=== PATIENT | female | born 1970 | race Caucasian/White ===

== ENCOUNTER → 2019-12-26 13:19 | Outpatient (CLI) | payer OTHER, SELFPAY ==
--- NOTE | 2019-12-26 13:23 | DI.RAD.S_ITS ---
PROCEDURE: XR FOOT LT MIN 3V INDICATIONS: LT foot pain TECHNIQUE: 3 views of the foot were acquired. COMPARISON: None. FINDINGS: Bones: No fractures or dislocations. No suspicious bony lesions. Soft tissues: No tibiotalar joint effusion. Achilles tendon appears normal. IMPRESSION: No acute osseous abnormality of the left foot. Dictated by: Meet Coreas M.D. on 12/26/2019 at 12:36 Approved by: Meet Coreas M.D. on 12/26/2019 at 12:37
== END ==
PROVIDERS: PCP Family Medicine; Referring Provider Physician Assistant; Visit Provider Physician Assistant
DX: M79.672 Pain in left foot (principal)
CPT/HCPCS: 73630

== ENCOUNTER → 2022-04-12 15:06 | Outpatient (CLI) | payer OTHER, SELFPAY ==
[2022-04-12 16:06] LABS: COVID19 -Nasal RAPID Negative (Negative)
== END ==
PROVIDERS: PCP Family Medicine; Visit Provider Surgery
DX: Z20.822 Contact with and (suspected) exposure to COVID-19 (principal); Z01.812 Encounter for preprocedural laboratory examination
CPT/HCPCS: 87635; C9803

== ENCOUNTER 2022-04-15 12:13 | Day surgery (SDC) | payer OTHER, SELFPAY ==
--- NOTE | 2022-04-15 | PATH_ITS ---
[facility] Accession Number: [id number] . 01 Material submitted: . PART A: gastrointestinal site - ANTRUM PART B: esophagus - MID ESOPHAGUS . 01 Diagnosis: A. Antrum, Biopsy: Gastric mucosa with minimal chronic inflammation and increased eosinophils within the lamina propria. No Helicobacter pylori organisms on immunohistochemical evaluation. No intestinal metaplasia, dysplasia, or malignancy. See comment. . B. Mid Esophagus, Biopsy: Esophageal squamous mucosa with mildly increased intraepithelial eosinophils (up to 20 per high-power field). No fungal organims on AB/PAS stain. No glandular mucosa present. No dysplasia or malignancy. See comment. MRV 04/19/2022 1631 Local . 01 Comment: Parts A and B: The features suggest the possibility of eosinophilic esophagitis in the right clinical setting. Reflux remains on the histologic differential diagnosis and clinical correlation is recommended. The presence of increased eosinophils in the gastric mucosa is non-specific and may be seen in conjunction to the findings in part B or maybe related to allergy, drug/toxins, infection, peptic related disease or maybe secondary to peripheral eosinophilia. Clinical correlation is recommended. . As part of routine air quality chemist, Dr. Aashish Andres also reviewed this case and agrees with the diagnosis. . 01 Electronically signed: . Suyapa Todd MD, Pathologist NPI- [id number] . 01 Gross description: . A. Received in formalin, labeled with the patient's name and antrum, and consists of two irregular silva soft tissue fragments ranging from 0.2 cm to 0.3 cm in greatest dimension. Submitted entirely in cassette A1. B. Received in formalin, labeled with the patient's name and mid esophageal, and consists of five irregular pale silva soft tissue fragments ranging from 0.2 cm to 0.3 cm in greatest dimension. Submitted entirely in cassette B1. ([id number]) /FRR 04/18/2022 0327 Local . 01 Microscopic: . A. An immunohistochemical stain was performed to evaluate for Helicobacter organisms and is negative. The control stain showed appropriate reactivity. . * This test was developed and its performance characteristics determined by [facility]. It has not been cleared or approved by the U.S. Food and Drug Administration. The FDA has determined that such clearance or approval is not necessary. This test is used for clinical purposes. It should not be regarded as investigational or for research. . 01 Pathologist provided ICD-10: K29.70, K20.0, K21.00 . 01 CPT . 888195, 625274, I10529, 899473 Specimen Comment: A courtesy copy of this report has been sent to [phone] Performed at: [facility] [address] [place] [address], [place], [place] [id number] MD Timur Kelley MD Phone: [phone]
[2022-04-15] MEDS: SODIUM CHLORIDE 0.9% 1,000 ML 84 ML IV ×2 (12:45→15:41)
[2022-04-15 12:57] VITALS: BP 121/78; PULSE 81; RESP 16; TEMP 37.3; O2SAT 100; BMI 19.3
--- NOTE | 2022-04-15 13:20 | PM.HP.1 ---
History of Present Illness History of Present Illness Date Patient Seen: 04/15/22 Time Patient Seen: 13:20 Chief complaint: EGD Narrative: I reviewed the recent note by Dr. Recinos. No significant changes. Repeat HIDA scan is still pending. Patient History Family & Social History Social History: household members spouse Tobacco & Substance use: Smoking Status Former smoker alcohol intake frequency a few times a month Substance Use Type marijuana Meds Home Medications and Allergies Home Medications Medication Instructions Recorded Confirmed Type cetirizine 10 mg tablet (Zyrtec) 10 mg PO DAILY PRN Allergy Symptoms 04/15/22 04/15/22 History rizatriptan 10 mg tablet 10 mg PO DAILY PRN Migraine 04/15/22 04/15/22 History Headache venlafaxine 37.5 mg 37.5 mg PO DAILY 04/15/22 04/15/22 History capsule,extended release 24 hr Allergies Allergy/AdvReac Type Severity Reaction Status Date / Time banana Allergy Severe Anaphylaxis Verified 04/15/22 12:48 Review of Systems Review of Systems ROS: Yes All systems reviewed with the patient and are negative except as otherwise documented Exam Vital Signs (past 8 hours): - 04/15/22 12:57 Temperature 99.1 F Pulse Rate 81 Respiratory Rate 16 Blood Pressure 121/78 Pulse Oximetry 100 Oxygen Delivery Method Room Air Oxygen Delivery Method Room Air Const General: cooperative HENMT Head: normal to inspection Eyes General: appearance normal, both eyes and all related structures Neck Neck: normal visual inspection Chest Chest: normal inspection of the chest Resp Effort & Inspection: normal respiratory effort Cardio Rate: regular rate GI Inspection: normal to inspection Skin General: no rashes or lesions noted Neuro General: patient alert and patient awake Extrem General: normal to inspection and no pedal edema Psych Appearance: grossly normal Assessment & Plan Assessment & Plan narrative: 51-year-old female with right upper quadrant pain. She is a history of gastritis. EGD is planned for today. Time Spent With Patient Critical Care time: I spent a total of [] minutes of critical care time on this patient's care today; this time is exclusive of procedural time.
--- NOTE | 2022-04-15 13:22 | PM.PREOP ---
Pre-operative Note COVID-19 COVID-19 status: Negative Result date/Date tested (Pos, Neg/Pending): 04/12/22 Criteria for continued procedure: Possibility delay results in more complex future surgery or treatment Interval Note History & Physical reviewed/Exam performed by Physician: Yes Changes to H&P: No ASA Class (for procedural sedation): II
--- NOTE | 2022-04-15 15:44 | PM.OP.EGD ---
Operative Date/Time/Diagnoses Date of procedure: 04/15/22 Time of procedure: 15:44 Pre-op diagnosis: Right upper quadrant pain Post-op diagnosis: other (Multifocal esophageal stricturing) Procedure & Clinicians Study performed: EGD with biopsy and balloon dilatation Same procedure as scheduled: No Indications: Right upper quadrant pain Surgeon: Yovani Akbar Procedure Notes SCOAP/Timeout: Done Procedure in detail: After the risks and benefits were explained, written and verbal informed consent was obtained. The patient was brought into the procedure room and placed into the left lateral decubitus position. Please see nurse otr truck driver notes for sedation details. The scope was introduced into the mouth through the bite block and advanced under direct visualization to the 2nd portion of the duodenum. The scope was slowly withdrawn carefully examining the mucosa for any defects or lesions. Retroflexed views were accomplished in the stomach. The stomach was decompressed, the scope was then removed from the patient who tolerated the procedure well. Sedation minutes: 28 Complications: none Impression: 1. Esophagus: Upon entry into the esophagus it was apparent that there was a ring roughly 9 mm in greatest dimension that would not allow passage of the tip of the endoscope through. I withdrew the scope and passed a 10-12 mm dilating balloon. We then repositioned the scope in proximal esophagus and advanced the wire into stomach with ease. I then positioned the balloon across the ring and sequentially dilated at 10, 11, and then 12 mm. 10 mm was held for approximately 30-40 seconds. Eleven and 12 mm were held for approximately 1 minute. After the dilatation was accomplished there was an appropriate rent in the mucosa. I was then able to advance down to the GE junction were a 2nd ring was identified right at the interface between stomach and esophagus. Lumen size was perhaps 8-9mm there as well. We once again advance the wire from the balloon into stomach and then sequentially dilated starting at 10 mm up to 12 mm. Ten was held for about 30-40 seconds 11 and 12 mm were held for about a minute each. After the dilatation was accomplished there was another appropriate rent in the mucosa consistent with dilatation. We then easily passed into the stomach for completion of the procedure. I noticed that there were some subtle circumferential rings in the midesophagus and at the completion of the procedure we took midesophageal biopsies for evaluation for eosinophilic esophagitis. 2. Stomach: The patient had superficial and crater ring peptic ulcer disease in the antrum. These ulcers were bland based. Two or 3 were seen the largest was perhaps 7 mm in greatest dimension. Biopsies were acquired from this location for exclusion of Helicobacter or any other underlying pathology. Otherwise retroflexed views of the LES were unremarkable apart from some blood from the prior dilatation. 3. Duodenum: This was visually unremarkable from the bulb through to the 2nd portion. Endoscopic diagnosis 1. Multifocal esophageal rings status post dilatation to 12 mm x 2. (1 at the GE junction and 1 just below the upper esophageal sphincter mechanism) 2. Tightly grouped circumferential esophageal folds concerning for eosinophilic esophagitis-biopsied 3. Multifocal antral peptic ulcer disease. Post-procedure Plan for aftercare: 1. Await histopathology. 2. Omeprazole twice daily is recommended starting today for the next 2 weeks and then once per day thereafter. 3. Avoid NSAIDs 4. If Helicobacter is found it will need to be eradicated with standard triple therapy. 5. If eosinophilic esophagitis is confirmed then referral to an software licensing specialist will be pursued. 6. Liquid diet only this evening advancing to soft diet tomorrow as tolerated advancing to well chewed food beyond that as tolerated. Disposition: PACU
[2022-04-15 15:48] VITALS: BP 87/57; PULSE 62; RESP 20; TEMP 36.2; O2SAT 100
[2022-04-15 15:53] VITALS: BP 87/56; PULSE 60; RESP 20; O2SAT 100
[2022-04-15 15:58] VITALS: BP 91/62; PULSE 59; RESP 19; O2SAT 100
[2022-04-15 16:06] VITALS: BP 97/61; PULSE 79; RESP 14; TEMP 36.2; O2SAT 100
[2022-04-15 16:35] VITALS: BP 111/65; PULSE 56; RESP 16; O2SAT 100
== END 2022-04-15 16:05 | disposition home or self-care (01) ==
PROVIDERS: PCP Physician Assistant; Referring Provider Internal Medicine Gastroenterology; Visit Provider Internal Medicine Gastroenterology
PROC: 0DJ08ZZ Inspection of Upper Intestinal Tract, Via Natural or Artificial Opening Endoscopic (ICD-10-PCS; CPT 43235; principal; 2022-04-15 13:30)
DX: K25.9 Gastric ulcer, unspecified as acute or chronic, without hemorrhage or perforation (principal); K22.2 Esophageal obstruction; J45.909 Unspecified asthma, uncomplicated; K29.50 Unspecified chronic gastritis without bleeding
CPT/HCPCS: 43249; 43239; J2704

== ENCOUNTER → 2022-04-17 09:01 | Outpatient (CLI) | payer OTHER, SELFPAY | PROVIDERS: PCP Physician Assistant; Referring Provider Student in an Organized Health Care Education/Training Program; Visit Provider Student in an Organized Health Care Education/Training Program | DX: R93.5 Abnormal findings on diagnostic imaging of other abdominal regions, including retroperitoneum (principal); R11.2 Nausea with vomiting, unspecified ==

== ENCOUNTER → 2022-04-29 09:12 | Outpatient (CLI) | payer OTHER, SELFPAY ==
--- NOTE | 2022-04-29 09:15 | DI.NM.S_ITS ---
PROCEDURE: NM HIDA WITH CCK PHARMACEUTICAL: 5.3 mCi Tc-99m mebrofenin IV; 1.0 mcg CCK IV. INDICATIONS: ABNORMAL ABD IMAGING/ABNORMAL HIDA/NAUSEA/VOMITING TECHNIQUE: Following intravenous administration of Tc-99m mebrofenin, sequential anterior abdominal images were obtained. To evaluate the contractile response of the gallbladder in response to Cholecystokinin (CCK), sincalide (0.02 ?g/kg) was administered by slow intravenous infusion approximately 60 minutes after the administration of the radiopharmaceutical. Sequential imaging was continued for 30 minutes after the start of CCK infusion. Gallbladder ejection fraction was calculated. COMPARISON: [facility], , ABDOMEN COMPLETE, 12/27/2014, 8:42. FINDINGS: Biliary scan: There is normal tracer uptake and excretion by the liver. There is normal visualization of the intrahepatic ducts, common bile duct, and gallbladder. There is normal tracer transit into the duodenum. Note is made of bile reflux into the stomach. CCK stimulation: There is poor contractile response of the gallbladder to CCK infusion. The calculated gallbladder ejection fraction is 10%; normal values are above 35%. IMPRESSION: 1. Normal filling of gallbladder. No evidence for acute cholecystitis. 2. Poor contractile response of gallbladder to CCK stimulation consistent with gallbladder dyskinesia. 3. Bile reflux into the stomach. Dictated by: Moy Bermudez M.D. on 04/29/2022 at 11:31 Approved by: Moy Bermudez M.D. on 04/29/2022 at 11:34
== END ==
PROVIDERS: PCP Physician Assistant; Referring Provider Student in an Organized Health Care Education/Training Program; Visit Provider Student in an Organized Health Care Education/Training Program
DX: R93.5 Abnormal findings on diagnostic imaging of other abdominal regions, including retroperitoneum (principal); R11.2 Nausea with vomiting, unspecified
CPT/HCPCS: 78227; A9537; J2805

== ENCOUNTER 2022-06-11 08:58 | Day surgery (SDC) | payer OTHER, SELFPAY ==
[2022-06-06 12:20] VITALS: BMI 19.2
[2022-06-11] VITALS (10 sets, daily range): BP systolic 90–110; BP diastolic 58–73; PULSE 76–89; RESP 12–20; TEMP 36.5–37.3; O2SAT 94–100; BMI 19.2
--- NOTE | 2022-06-11 | PATH_ITS ---
[facility] Accession Number: [id number] . 01 Material submitted: . gallbladder - GALLBLADDER . 01 Diagnosis: Gallbladder, Cholecystectomy: Mild chronic cholecystitis. MRV 06/14/2022 1125 Local . 01 Electronically signed: . Suyapa Todd MD, Pathologist NPI- [id number] . 01 Gross description: . The specimen is received in formalin labeled with the patient's name, , and gallbladder, and consists of an intact gallbladder measuring 6.4 x 3.3 x 2.7 cm. The serosa is green and smooth while the hepatic surface is rough and unremarkable. The cystic duct is received closed with a clamp, is inked blue, and no pericystic lymph node is identified. The lumen is filled with dark green viscous bile with no calculi identified in the lumen or the container. The mucosa is dark green and velvety with no pinpoint yellow areas of discoloration, polyps, or lesions identified. The cortez average 0.1 cm thick. Ancillary Services Manager sections to include the cystic duct margin and full-thickness sections are submitted in cassette A1. ([id number]) /MRV 06/13/2022 1305 Local . 01 Pathologist provided ICD-10: K82.9 . 01 CPT . 433524 Specimen Comment: A courtesy copy of this report has been sent to [phone] Performed at: 01 [facility] [address] [place] [address], [place], [place] [id number] MD Timur Kelley MD Phone: [phone]
[2022-06-11] MEDS: ONDANSETRON 4 MG/2 ML INJ IV (09:23)
[2022-06-11] MEDS: ACETAMINOPHEN 325 MG TABLET 975 MG PO (09:32)
[2022-06-11] MEDS: LACTATED RINGERS 1,000 ML 84 ML IV (09:35)
--- NOTE | 2022-06-11 09:44 | PM.PREOP ---
Pre-operative Note COVID-19 COVID-19 status: Negative Result date/Date tested (Pos, Neg/Pending): 06/11/22 Interval Note History & Physical reviewed/Exam performed by Physician: Yes Changes to H&P: No ASA Class (for procedural sedation): II
[2022-06-11] MEDS: SCOPOLAMINE 1 PATCH TOP (09:59)
--- NOTE | 2022-06-11 10:00 | SUR.PREOP ---
[address] Phillip in OR #2. Informed of patient migraine and mild nausea. See new orders for Tylenol and zofran.
[2022-06-11] MEDS: CEFAZOLIN 2 GM/100 ML PREMIX 100 ML IV (10:10)
--- NOTE | 2022-06-11 10:26 | SUR.OPER ---
Supine on padded OR bed, head on pillow, safety belt at thigh, Bilateral arms secured on padded arm boards <90 degrees abduction. Legs uncrossed. Padded footboard in place. Tape over blanket to secure lower legs.Gel pad under bilateral heels.
[2022-06-11] MEDS: BUPIVACAINE 0.5% W/ EPI (PF) 30 ML VIAL INJ (10:37)
--- NOTE | 2022-06-11 11:33 | PM.OP.1 ---
Operative Date/Time/Diagnoses Date of procedure: 06/11/22 Time of procedure: 11:33 Pre-op diagnosis: Biliary dyskinesia Post-op diagnosis: same Procedure & Clinicians Procedure: Laparoscopic cholecystectomy Same procedure as scheduled: Yes Surgeon: Tres Juárez Operative Notes Procedure in detail: The patient was given preoperative antibiotic. The patient was brought to the operating room, placed on the table in the supine position. General endotracheal anesthesia was induced. The abdomen was prepped and draped. A time-out was performed. We made a 1 cm infraumbilical incision. We dissected down to the base of the umbilical stalk using cautery. We grasped the umbilical stalk with a Greg clamp to elevate the abdominal wall. We scored the fascia in the midline with cautery 1 cm. We pierced the peritoneum with a Peon clamp. The Orlando port was placed and the abdomen was insufflated to 15 mmHg. A 5 mm 30 degree laparoscopic was inserted. There was no evidence of any injury from the entry. Next, we placed 5 mm ports in the subxiphoid position and right upper quadrant at the midclavicular line and anterior axillary line. The patient was then positioned in reverse Trendelenburg and the table was tilted to the left. The gallbladder was grasped at the dome and retracted cephalad. There were no adhesions noted in the gallbladder did not appear to be particularly inflamed. We then dissected the cystic structures with a combination of hook cautery and blunt dissection. We obtained a critical view. We placed clips on the cystic duct and artery and divided the cystic duct and artery sharply between the clips. The gallbladder was then dissected off the liver and placed in a specimen retrieval bag. We irrigated the right upper quadrant and all the aspirate returned clear. We then removed the 5 mm ports under direct vision we removed the [place] port. We then injected some local into the fascia and closed the fascia with 2 interrupted 0 Vicryl sutures. The skin incisions were closed with 4-0 Monocryl and Steri-Strips were applied. Band-Aids were applied over the Steri-Strips. EBL: 5 mL Specimen: Gallbladder Post-operative Disposition: PACU
[2022-06-11] MEDS: OXYCODONE/ACETAMINOPHEN 5/325 TABLET 1 TAB PO (12:19)
== END 2022-06-11 12:25 | disposition home or self-care (01) ==
PROVIDERS: PCP Physician Assistant; Referring Provider Surgery; Visit Provider Surgery
PROC: 0FT44ZZ Resection of Gallbladder, Percutaneous Endoscopic Approach (ICD-10-PCS; CPT 47562; principal; 2022-06-11 10:15)
DX: K82.8 Other specified diseases of gallbladder (principal); J45.909 Unspecified asthma, uncomplicated; Z20.822 Contact with and (suspected) exposure to COVID-19
CPT/HCPCS: 47562; 87635; C9803; J0690; J1100; J1885; J2250; J2405; J2704; J3010

== ENCOUNTER → 2022-06-11 08:58 | Outpatient (CLI) | payer OTHER, SELFPAY ==
[2022-06-11 09:38] LABS: COVID19 -Nasal RAPID Negative (Negative)
== END ==
PROVIDERS: PCP Physician Assistant; Visit Provider Surgery
DX: Z01.812 Encounter for preprocedural laboratory examination (principal); Z20.822 Contact with and (suspected) exposure to COVID-19
CPT/HCPCS: 87635

== ENCOUNTER 2023-08-03 10:16 | Emergency (ER) | payer OTHER, SELFPAY ==
[2023-08-03 10:34] VITALS: BP 141/79; PULSE 75; RESP 18; TEMP 36.4; O2SAT 100; BMI 19.3
--- NOTE | 2023-08-03 10:39 | DI.RAD.S_ITS ---
PROCEDURE: XR CHEST 1V INDICATIONS: chest pain TECHNIQUE: One view of the chest was acquired. COMPARISON: None. FINDINGS: Surgical changes and devices: None. Lungs and pleura: Lungs are clear. No pleural effusions or pneumothorax. Mediastinum: Mediastinal contours appear normal. Heart size is normal. Bones and chest wall: No suspicious bony lesions. Overlying soft tissues appear unremarkable. IMPRESSION: No acute cardiopulmonary abnormality is seen. Dictated by: Renee Beltran M.D. on 08/03/2023 at 11:48 Approved by: Renee Beltran M.D. on 08/03/2023 at 11:48
[2023-08-03 11:05] LABS: Add Manual Diff / Slide Review NO; Basophils Absolute Auto 100 /uL (0-100); Basophils Percent Auto 1.8 % (0-2); Eosinophils Absolute Auto 300 /uL (0-450); Eosinophils Percent Auto 5.6 % (2-4); Hematocrit 36.8 % (36-46); Hemoglobin 12.4 g/dL (12.0-16.0); Lymphocytes Absolute Auto 1700 /uL (1100-4500); Lymphocytes Percent Auto 33.7 % (25-40); Mean Corpuscular HGB Conc 33.6 % (30-36); Mean Corpuscular Hemoglobin 28.5 PG (26-34); Mean Corpuscular Volume 84.9 fL (80-100); Monocytes Absolute Auto 400 /uL (0-900); Monocytes Percent Auto 7.7 % (3-14); Neutrophils Absolute Auto 2600 /uL (1500-7000); Neutrophils Percent Auto 51.2 % (50-75); Platelet Count 329 X10^3/uL (150-400); Red Blood Cell Count 4.34 X10^6/uL (4.0-5.2); Red Cell Distribution Width 14.1 % (11.6-14.8)
[2023-08-03 11:12] LABS: Prothrombin Time 10.9 SECONDS (9.4-12.5)
[2023-08-03 11:15] LABS: PTT Partial Thromboplastin Tim 35 SECONDS (25.1-36.5)
[2023-08-03 11:16] LABS: Alanine Aminotransferase 15 IU/L (<35); Albumin 4.3 g/dL (3.5-5.0); Albumin Globulin Ratio 1.3 (1.0-2.8); Alkaline Phosphatase 62 U/L (38-126); Aspartate Aminotransferase 23 IU/L (14-36); BUN Creatinine Ratio 14.7 (6-22); Bilirubin Total 0.5 mg/dL (0.2-1.3); Blood Urea Nitrogen 11 mg/dL (7-17); Calcium 8.7 mg/dL (8.4-10.2); Carbon Dioxide 24 mmol/L (22-32); Chloride 106 mmol/L (98-107); Creatine Kinase 65 U/L (30-135); Estimated Glomerular Filt Rate > 60 mL/min (>60); Globulin 3.2 g/dL (1.7-4.1); Glucose 97 mg/dL (70-100); HEMOLYSIS < 15 (0-50); Lipase 150 U/L (23-300); Magnesium 2.1 mg/dL (1.6-2.3); Potassium 3.9 mmol/L (3.4-5.1); Sodium 138 mmol/L (137-145); Total Protein 7.5 g/dL (6.3-8.2)
[2023-08-03 11:27] LABS: Troponin I < 0.012 ng/mL (0.01-0.034)
[2023-08-03 12:00] VITALS: BP 111/58; PULSE 75; RESP 16; O2SAT 100
--- NOTE | 2023-08-03 15:52 | ED_ITS ---
HPI - Chest Pain <Dorys Damon PA-C - Last Filed: 08/03/23 16:01> General Chief Complaint: Chest Pain Stated Complaint: CHEST PAIN/ COUGH Time Seen by Provider: 08/03/23 11:12 History of Present Illness HPI narrative: Patient is a 53-year-old female with a history of asthma and possible eosinophilic esophagitis who presents with 48 hours of chest pain. She reports the pain started on Friday which was the same day that she had a special needs student at work who was escalating and she had to physically restrain him. She does not remember any specific injury at the time but wonders if this could have caused an injury. She also has recently had a respiratory illness. She went sledding yesterday and was very uncomfortable. She has been taking ibuprofen for the pain. It is worse with a sharp breath or activity or left arm movement. Sometimes it radiates over her left shoulder. It is better with rest, ibuprofen. She takes an albuterol inhaler PRN, especially before exercising. She feels somewhat short of breath but thinks this is secondary to her recent viral illness not due to this pain. She has a history of a workup for chest pain through [facility] and they didn't find anything. She denies any history of blood clots, swelling in her legs or recent immobilization. Related Data Home Medications Medication Instructions Recorded Confirmed cetirizine 10 mg tablet (Zyrtec) 10 mg PO DAILY PRN Allergy Symptoms 04/15/22 06/24/22 rizatriptan 10 mg tablet 10 mg PO DAILY PRN Migraine 04/15/22 06/24/22 Headache venlafaxine 37.5 mg 37.5 mg PO DAILY 04/15/22 06/24/22 capsule,extended release 24 hr eletriptan 40 mg tablet 40 mg PO ONCE 05/27/22 06/24/22 albuterol 90 mcg/actuation aerosol 90 mcg inhalation Q4H PRN 06/11/22 06/24/22 inhaler Shortness Of Breath Or Wheezing Previous Rx's Medication Instructions Recorded omeprazole 20 mg capsule,delayed 20 mg PO BID #60 caps 04/15/22 release hydrocodone 10 mg-acetaminophen 15 ml PO Q8H PRN pain #120 mL 06/11/22 325 mg/15 mL (15 mL) oral solution hydrocodone 5 mg-acetaminophen 325 1 tab PO Q8H PRN pain #14 tabs 06/11/22 mg tablet ondansetron 4 mg disintegrating 4 mg PO Q8H PRN nausea and 06/11/22 tablet vomiting #20 tabs Allergies Allergy/AdvReac Type Severity Reaction Status Date / Time banana Allergy Severe Anaphylaxis Verified 06/24/22 13:10 Review of Systems <Dorys Damon PA-C - Last Filed: 08/03/23 16:01> Review of Systems ROS Unobtainable: All systems reviewed & are unremarkable except as noted in HPI and below Patient History <Dorys Damon PA-C - Last Filed: 08/03/23 16:01> Medical History Asthma Surgical History Hx of esophagogastroduodenoscopy (04/15/22) H/O tubal ligation History of endometrial ablation Family History Mother Hypertension Gallstones Father Heart disease Social History household members: spouse Smoking Status: Former smoker alcohol intake: current Smoking Status: Former smoker alcohol intake frequency: a few times a month Substance Use Type: marijuana Exam <Dorys Damon PA-C - Last Filed: 08/03/23 16:01> Narrative Exam Narrative: GENERAL: 53 year old patient appears stated age. Well-developed patient, in no acute distress. NEURO: AOx3. HEAD: Atraumatic. Normocephalic. EYES: Pupils equal round and reactive. Extraocular motions intact. No scleral icterus. No injection or drainage. ENT: Nose without bleeding or purulent drainage. Airway patent. CARDIOVASCULAR: Regular rate and rhythm without murmurs, gallops, or rubs. RESPIRATORY: Clear to auscultation. Breath sounds equal bilaterally. No wheezes, rales, or rhonchi. EXTREMITIES: No edema or joint tenderness. SKIN: No rash or erythema of visible areas Initial Vital Signs Initial Vital Signs: Vital Signs Temperature 97.6 F 08/03/23 10:34 Pulse Rate 75 08/03/23 10:34 Respiratory Rate 18 08/03/23 10:34 Blood Pressure 141/79 H 08/03/23 10:34 Pulse Oximetry 100 08/03/23 10:34 Oxygen Delivery Method Room Air 08/03/23 10:34 <Jyoti Christine DO - Last Filed: 08/06/23 08:53> Initial Vital Signs Initial Vital Signs: Vital Signs Temperature 97.6 F 08/03/23 10:34 Pulse Rate 75 08/03/23 10:34 Respiratory Rate 18 08/03/23 10:34 Blood Pressure 141/79 H 08/03/23 10:34 Pulse Oximetry 100 08/03/23 10:34 Oxygen Delivery Method Room Air 08/03/23 10:34 Scores <Dorys Damon PA-C - Last Filed: 08/03/23 16:01> Vasiliy Criteria for PE Clinical signs and symptoms of DVT: No PE is #1 Dx or equally likely: No Heart rate > 100: No Immobilization at least 3 days or surg in previous 4 weeks: No History of PE or DVT: No Hemoptysis: No Malignancy w/Treatment within 6 months or palliative: No Wells' PE Score total: 0 <DO Tien Trejo Last Filed: 08/06/23 08:53> WellsNaina Criteria for PE Wells' PE Score total: 0 Course <Dorys Damon PA-C - Last Filed: 08/03/23 16:01> Orders Ordered: Discontinued Medications Aspirin (Aspirin 81 Mg Chew Tab) 324 mg PO NOW ONE Stop: 08/03/23 10:40 Last Admin: 08/03/23 11:28 Dose: Not Given Documented By: RL Vital Signs Vital signs: Vital Signs - 8 hr 08/03/23 10:34 08/03/23 12:00 Temperature 97.6 F Pulse Rate 75 75 Respiratory Rate 18 16 Blood Pressure 141/79 H 111/58 L Pulse Oximetry 100 100 Oxygen Delivery Method Room Air Room Air <Jyoti Christine DO - Last Filed: 08/06/23 08:53> Orders Ordered: Discontinued Medications Aspirin (Aspirin 81 Mg Chew Tab) 324 mg PO NOW ONE Stop: 08/03/23 10:40 Last Admin: 08/03/23 11:28 Dose: Not Given Documented By: RL Vital Signs Vital signs: Vital Signs - 8 hr 08/03/23 10:34 08/03/23 12:00 Temperature 97.6 F Pulse Rate 75 75 Respiratory Rate 18 16 Blood Pressure 141/79 H 111/58 L Pulse Oximetry 100 100 Oxygen Delivery Method Room Air Room Air MDM - Chest Pain <Dorys Damon PA-C - Last Filed: 08/03/23 16:01> Lab Data 08/03/23 10:44 08/03/23 10:44 Labs: Lab Results 08/03/23 Range/Units 10:44 WBC 5.0 (4.5-11.0) X10^3/uL RBC 4.34 (4.0-5.2) X10^6/uL Hgb 12.4 (12.0-16.0) g/dL Hct 36.8 (36-46) % MCV 84.9 (80-100) fL MCH 28.5 (26-34) PG MCHC 33.6 (30-36) % RDW 14.1 (11.6-14.8) % Plt Count 329 (150-400) X10^3/uL Neut % (Auto) 51.2 (50-75) % Lymph % (Auto) 33.7 (25-40) % [place] % (Auto) 7.7 (3-14) % Eos % (Auto) 5.6 H (2-4) % Baso % (Auto) 1.8 (0-2) % Neut # (Auto) 2600 (6671-2916) /uL Lymph # (Auto) 1700 (3670-6831) /uL [place] # (Auto) 400 (0-900) /uL Eos # (Auto) 300 (0-450) /uL Baso # (Auto) 100 (0-100) /uL PT 10.9 (9.4-12.5) SECONDS INR 1.0 (0.9-1.3) APTT 35 (25.1-36.5) SECONDS Sodium 138 (137-145) mmol/L Potassium 3.9 (3.4-5.1) mmol/L Chloride 106 (98-107) mmol/L Carbon Dioxide 24 (22-32) mmol/L BUN 11 (7-17) mg/dL Creatinine 0.75 (0.52-1.04) mg/dL Estimated GFR > 60 (>60) mL/min BUN/Creatinine Ratio 14.7 (6-22) Glucose 97 (70-100) mg/dL Calcium 8.7 (8.4-10.2) mg/dL Magnesium 2.1 (1.6-2.3) mg/dL Total Bilirubin 0.5 (0.2-1.3) mg/dL AST 23 (14-36) IU/L ALT 15 (<35) IU/L Alkaline Phosphatase 62 (38-126) U/L Total Creatine Kinase 65 (30-135) U/L Troponin I < 0.012 (0.01-0.034) ng/mL Total Protein 7.5 (6.3-8.2) g/dL Albumin 4.3 (3.5-5.0) g/dL Globulin 3.2 (1.7-4.1) g/dL Albumin/Globulin Ratio 1.3 (1.0-2.8) Lipase 150 (23-300) U/L Imaging Data Chest x-ray: Radiologist's Impression: PROCEDURE: XR CHEST 1V INDICATIONS: chest pain TECHNIQUE: One view of the chest was acquired. COMPARISON: None. FINDINGS: Surgical changes and devices: None. Lungs and pleura: Lungs are clear. No pleural effusions or pneumothorax. Mediastinum: Mediastinal contours appear normal. Heart size is normal. Bones and chest wall: No suspicious bony lesions. Overlying soft tissues appear unremarkable. IMPRESSION: No acute cardiopulmonary abnormality is seen. Dictated by: Renee Beltran M.D. on 08/03/2023 at 11:48 Approved by: Renee Beltran M.D. on 08/03/2023 at 11:48 ECG Data Interpretation: Normal sinus rhythm, rate 64, PA 120, QRS 76, QT 416, ST-T changes MDM Narrative Medical decision making narrative: Multiple etiologies for patient's symptoms considered including, but not limited to: ACS, costochondritis, pneumothorax, pleural effusion, rib fracture, PE Patient with 2 days of reproducible chest pain, possibly related to an injury. Her exam is very reassuring. Her labs including troponin are without clinically significant abnormality, her chest x-ray is normal and her EKG is normal. I do not suspect ACS. I do not suspect PE. I do suspect costochondritis and I advised her to continue heat, ice, NSAIDs and rest. I would expect this to get better over the next 7-10 days. If it does not, please see PCP for reassessment. Patient's symptoms improved over duration of stay with above-stated therapies. Findings and discharge diagnosis discussed with patient/family followed by verbalization of understanding Return precautions discussed with patient/family whom verbalize understanding of diagnosis and plan <Jyoti Christine, DO - Last Filed: 08/06/23 08:53> Lab Data Labs: Lab Results 08/03/23 Range/Units 10:44 WBC 5.0 (4.5-11.0) X10^3/uL RBC 4.34 (4.0-5.2) X10^6/uL Hgb 12.4 (12.0-16.0) g/dL Hct 36.8 (36-46) % MCV 84.9 (80-100) fL MCH 28.5 (26-34) PG MCHC 33.6 (30-36) % RDW 14.1 (11.6-14.8) % Plt Count 329 (150-400) X10^3/uL Neut % (Auto) 51.2 (50-75) % Lymph % (Auto) 33.7 (25-40) % [place] % (Auto) 7.7 (3-14) % Eos % (Auto) 5.6 H (2-4) % Baso % (Auto) 1.8 (0-2) % Neut # (Auto) 2600 (0905-9087) /uL Lymph # (Auto) 1700 (7222-1448) /uL [place] # (Auto) 400 (0-900) /uL Eos # (Auto) 300 (0-450) /uL Baso # (Auto) 100 (0-100) /uL PT 10.9 (9.4-12.5) SECONDS INR 1.0 (0.9-1.3) APTT 35 (25.1-36.5) SECONDS Sodium 138 (137-145) mmol/L Potassium 3.9 (3.4-5.1) mmol/L Chloride 106 (98-107) mmol/L Carbon Dioxide 24 (22-32) mmol/L BUN 11 (7-17) mg/dL Creatinine 0.75 (0.52-1.04) mg/dL Estimated GFR > 60 (>60) mL/min BUN/Creatinine Ratio 14.7 (6-22) Glucose 97 (70-100) mg/dL Calcium 8.7 (8.4-10.2) mg/dL Magnesium 2.1 (1.6-2.3) mg/dL Total Bilirubin 0.5 (0.2-1.3) mg/dL AST 23 (14-36) IU/L ALT 15 (<35) IU/L Alkaline Phosphatase 62 (38-126) U/L Total Creatine Kinase 65 (30-135) U/L Troponin I < 0.012 (0.01-0.034) ng/mL Total Protein 7.5 (6.3-8.2) g/dL Albumin 4.3 (3.5-5.0) g/dL Globulin 3.2 (1.7-4.1) g/dL Albumin/Globulin Ratio 1.3 (1.0-2.8) Lipase 150 (23-300) U/L ECG Data Attestation: I personally reviewed and interpreted this ECG as follows: Prior ECG tracings: not available for review Interpretation: Normal sinus rhythm, rate 64, PA 120, QRS 76, QT 416, ST-T changes [place]-sinus rhythm rate 64 PA interval 120 QRS [address] changes Discharge Plan Departure Patient Disposition: Home Clinical Impression: Acute costochondritis Instructions: DI for Costochondritis Activity Restrictions/Additional Instructions: *You have been diagnosed with costochondritis. This is pain along the anterior ribs. There is no evidence of bony fracture or pneumonia, collapsed lung or strain on your heart on your x-ray or labs. This is usually treated with rest, stretching, NSAIDs such as ibuprofen and heat or ice. If you develop increasing shortness of breath, changing chest pain or other new symptoms, please return for reassessment. If the symptoms do not improve with conservative treatment over 7-10 days, please see your primary care for reassessment. *What to do: *Please continue to take your regular medications as directed. [ ] New medication prescriptions sent to your pharmacy: [ ] [ ] New medication written as a paper prescription [x] No new medications given *Please follow up with your primary care provider in 2-3 days, call for an appointment. Let them know you were seen in the Emergency Department and that we ask that you be seen in follow up. We will electronically transmit a record of today's note if your PCP is in our system *If you do not have a primary care provider please contact the [facility] Resource line at [phone]. They will ask some questions about your medical history and help get you set up with a doctor in the community. *Return to Emergency Department if you should have any new, worsening or concerning symptoms, such as [fever greater than 101 F, shaking chills, worsening pain, persistent vomiting or other concerning symptoms]. Prescriptions: No Action eletriptan 40 mg tablet 40 mg PO ONCE venlafaxine 37.5 mg capsule,extended release 24hr 37.5 mg PO DAILY cetirizine [Zyrtec] 10 mg Tablet 10 mg PO DAILY PRN (Reason: Allergy Symptoms) rizatriptan 10 mg tablet 10 mg PO DAILY PRN (Reason: Migraine Headache) Patient Comments: TAKE 1 TABLET BY MOUTH AT ONSET OF HEADACHE. MAY REPEAT EVERY 2 HOURS. MAXIMUM DOSAGE 3 TABLET / 30 MG IN 24 HOURS omeprazole 20 mg capsule,delayed release(DR/EC) 20 mg PO BID Qty: 60 3RF albuterol 90 mcg/actuation Aerosol 90 mcg INHALATION Q4H PRN (Reason: Shortness Of Breath Or Wheezing) hydrocodone-acetaminophen 10-325 mg/15 mL(15 mL) solution 15 ml PO Q8H PRN (Reason: pain) Qty: 120 0RF ondansetron 4 mg tablet,disintegrating 4 mg PO Q8H PRN (Reason: nausea and vomiting) Qty: 20 0RF hydrocodone-acetaminophen 5-325 mg tablet 1 tab PO Q8H PRN (Reason: pain) Qty: 14 0RF Referrals: Rosana Mccormick PA-C [Primary Care Provider] - Stand Alone Forms: Patient Portal/API ED Sign-out <Jyoti Christine DO - Last Filed: 08/06/23 08:53> Cosign ED Attending Rubina Attestation: I was available for consultation. I read EKG no priors to compare
== END 2023-08-03 12:00 | disposition home or self-care (01) ==
PROVIDERS: Emergency Medicine; Emergency Provider Physician Assistant; PCP Physician Assistant
DX: M94.0 Chondrocostal junction syndrome [Tietze] (principal); R07.9 Chest pain, unspecified
CPT/HCPCS: 36415; 71045; 80053; 82550; 83690; 83735; 84484; 85025; 85610; 85730; 93005; 99283; 99284